=== PATIENT | female | born 1950 | race Caucasian/White ===

== ENCOUNTER 2017-08-26 11:56 | Outpatient (CLI) | payer MEDICARE, BC ==
--- NOTE | 2017-08-26 13:28 | ULT ---
ULTRASOUND GALLBLADDER RIGHT UPPER QUADRANT: HISTORY: Pain. Nausea. Tenderness. COMPARISON: None. FINDINGS: Visualized portion of the pancreas unremarkable. The hepatic echotexture is slightly coarsened. The liver measures 18 cm in length. The main portal vein is patent with antegrade flow. The common bile duct measures 4 mm, normal. Son ographic Oconnor's sign is negative. The right kidney measures 10.5 x 4.4 x 4.6 cm without mass, hydronephrosis, or abnormal calcification s. IMPRESSION: 1. No cholelithiasis or evidence of cholecystitis. 2. Mild increased mild increased hepatic echotexture can be seen with steatosis. POS: [facility]
--- NOTE | 2017-08-26 13:33 | RAD ---
ABDOMEN 2 VIEWS WITH 1 VIEW CHEST XRAY: HISTORY: Abdominal pain, R10.11. COMPARISON: None. FINDINGS: Lungs are clear. No pneumothorax or effusion. Cardiac silhouette and mediastinal contours were with in normal limits. On the upright view, there is no free air in the hemidiaphragms. No dilated air-filled loops of larg e or small bowel. Mild facet degenerative disk disease at L3-4 or L4-5. There appears to be suture material in the left lower quadrant of the abdomen. Moderate vascular neeraj cifications. There are cannulated screws in the left femoral neck. IMPRESSION: No acute intraabdominal or intrathoracic abnormality. POS: [facility]
== END 2017-08-26 11:57 | disposition home or self-care (01) ==
LOC: ULT 11:56
PROVIDERS: ATTEND Internal Medicine Gastroenterology
DX: R10.11 Right upper quadrant pain (principal); R93.2 Abnormal findings on diagnostic imaging of liver and biliary tract
CPT/HCPCS: 36415; 74022; 76705; 80053; 82150; 85025

== ENCOUNTER 2018-02-24 11:18 | Outpatient (CLI) | payer MEDICARE, BC | END 2018-02-24 11:19 | disposition home or self-care (01) | LOC: BICMAMMO 11:18 | PROVIDERS: ATTEND Obstetrics & Gynecology | DX: Z12.31 Encounter for screening mammogram for malignant neoplasm of breast (principal); Z80.3 Family history of malignant neoplasm of breast | CPT/HCPCS: 77063; 77067 ==

== ENCOUNTER 2018-03-16 06:55 | Outpatient (CLI) | payer MEDICARE, BC ==
[2018-03-16] MEDS ORDERED: ISOVUE-370 76%-LOCM 1 ML ONE (13:51)
== END 2018-03-16 06:56 | disposition home or self-care (01) ==
LOC: BICCT 06:55
PROVIDERS: ATTEND Internal Medicine Gastroenterology
DX: D36.15 Benign neoplasm of peripheral nerves and autonomic nervous system of abdomen (principal); R10.32 Left lower quadrant pain; Q43.8 Other specified congenital malformations of intestine; R19.8 Other specified symptoms and signs involving the digestive system and abdomen; R19.4 Change in bowel habit; K55.1 Chronic vascular disorders of intestine; I70.1 Atherosclerosis of renal artery; I70.8 Atherosclerosis of other arteries; Z90.49 Acquired absence of other specified parts of digestive tract
CPT/HCPCS: 74177; 82565

== ENCOUNTER 2019-02-25 09:20 | Outpatient (CLI) | payer MEDICARE ==
--- NOTE | 2019-02-25 10:09 | MMO ---
Bilateral MAMMO Bilat Screen [facility]. CLINICAL HISTORY: Patient is 69 years old and is seen for screening. The patient has no personal history of cancer. The patient has a history of right Lumpectomy in March, - benign. VIEWS: The views performed were: bilateral craniocaudal with tomosynthesis and bilateral mediolateral oblique with tomosynthesis. FILMS COMPARED: The present examination has been compared to prior imaging studies performed at [facility] on 02/28/2015, 02/05/2016, 02/18/2017 and 02/24/2018. MAMMOGRAM FINDINGS: There are scattered fibroglandular densities. There are stable benign appearing calcifications seen in both breasts. There are also vascular calcifications. There are no suspicious masses, suspicious calcifications, or new areas of architectural distortion. IMPRESSION: THERE IS NO MAMMOGRAPHIC EVIDENCE OF MALIGNANCY. A ROUTINE FOLLOW-UP MAMMOGRAM IN 1 YEAR IS RECOMMENDED. THE RESULTS OF THIS EXAM WERE SENT TO THE PATIENT. ACR BI-RADS Category 2 - Benign finding MAMMOGRAPHY NOTE: 1. A negative mammogram report should not delay a biopsy if a dominant of clinically suspicious mass is present. 2. Approximately 10% to 15% of breast cancers are not detected by mammography. 3. Adenosis and dense breasts may obscure an underlying neoplasm. Reported by: MIAN BALL MD Electonically Signed: [id number]
== END 2019-02-25 09:21 | disposition home or self-care (01) ==
LOC: BICMAMMO 09:20
PROVIDERS: ATTEND Obstetrics & Gynecology
DX: Z12.31 Encounter for screening mammogram for malignant neoplasm of breast (principal)
CPT/HCPCS: 77063; 77067

== ENCOUNTER 2019-04-15 11:30 | Outpatient (CLI) | payer MEDICARE, BC ==
[2019-04-15 11:59] LABS: #Basophils 0.1 thou/uL (0.0-0.2); #Eosinphils 0.1 thou/uL (0.0-0.7); #Lymphocytes 1.9 thou/uL (1.20-3.40); #Monocytes 0.7 thou/uL (0.11-0.59); #Neutrophils 5.9 thou/uL (1.40-6.50); %Eosinophils 1.7 % (0.0-10.0); %Lymphocytes 21.3 % (21.0-51.0); %Monocytes 7.7 % (0.0-10.0); %Neutrophils 68.4 % (42.0-75.0); Mean Corpuscular HGB CONC 34.6 g/dL (32.0-36.0); Mean Corpuscular Hemoglobin 32.4 pg (27.0-31.0); Mean Corpuscular Volume 93.6 fL (78.0-98.0); Mean Platelet Volume 8.5 fL (7.4-10.4); Platelet Count 236 thou/uL (130-400); Red Blood Cell (RBC) Count 4.34 mill/uL (4.20-5.40); White Blood Cell (WBC) Count 8.7 thou/uL (4.8-10.8)
[2019-04-15 12:12] LABS: Anion Gap 12 mmol/L (10-20); BUN (Urea Nitrogen) 24 mg/dL (9.8-20.1); Calc. Creatinine Clearance 0 mL/min (70-130); Carbon Dioxide 29 mmol/L (23-31); Cardiac Risk 2.4 (Less than 4.5); Chloride 107 mmol/L (98-107); Estimated GFR-MDRD 68; Glucose 82 mg/dL (80-115); Potassium 4.4 mmol/L (3.5-5.1); Sodium 144 mmol/L (136-145)
--- NOTE | 2019-04-15 16:59 | EKG ---
Test Reason : Blood Pressure : / mmHG Vent. Rate : 056 BPM Atrial Rate : 056 BPM P-R Int : 204 ms QRS Dur : 086 ms QT Int : 486 ms P-R-T Axes : 075 069 235 degrees QTc Int : 468 ms Sinus bradycardia Minimal voltage criteria for LVH, may be normal variant Abnormal ECG When compared with ECG of 04-MAR-2016 11:23, No significant change was found Confirmed by DR. Kenneth CASTRO ([id number]) on 04/15/2019 4:59:07 PM Referred By: GABY Confirmed By:DR. Kenneth CASTRO
== END 2019-04-15 11:31 | disposition home or self-care (01) ==
LOC: LABBT 11:30
PROVIDERS: ATTEND Internal Medicine Cardiovascular Disease
DX: Z01.818 Encounter for other preprocedural examination (principal); R07.9 Chest pain, unspecified
CPT/HCPCS: 80048; 80061; 85025; 93005; 93010

== ENCOUNTER 2019-04-18 06:06 | Day surgery (SDC) | payer MEDICARE, BC ==
[2019-04-15 10:47] VITALS: BMI 32.6
[2019-04-18] MEDS ORDERED: Nitroglycerin 100MG/250ML BOT 250 ML ONE (07:01)
[2019-04-18] MEDS ORDERED: Heparin 10,000 UNITS/1 ML VIAL ONE (07:01)
[2019-04-18] MEDS ORDERED: Lidocaine 1% (PF) 30 ML VIAL ONE (07:01)
[2019-04-18] MEDS ORDERED: Verapamil 5 MG/2 ML VIAL ONE (07:02)
[2019-04-18] MEDS ORDERED: Fentanyl 100 MCG/2 ML VIAL ONE (07:02)
[2019-04-18] MEDS ORDERED: Midazolam HCl 2 mg/2 ml Vial ONE (07:02)
[2019-04-18] MEDS ORDERED: Aspirin Chewable 81 MG TAB ONE ×2 (08:08)
[2019-04-18] MEDS ORDERED: Clopidogrel Bisulfate 300 MG TAB ONE (08:08)
[2019-04-18] MEDS ORDERED: Iopamidol 370 76% 100 ML VIAL ONE (09:43)
[2019-04-18] MEDS ORDERED: Acetaminophen 500 MG TAB ONE (15:31)
[2019-04-18] MEDS ORDERED: Acetaminophen 500 MG TAB PO SCH (16:15)
== END 2019-04-18 17:05 | disposition home or self-care (01) ==
LOC: CCL 06:06
PROVIDERS: ATTEND Internal Medicine Cardiovascular Disease
PROC: 4A023N7 Measurement of Cardiac Sampling and Pressure, Left Heart, Percutaneous Approach (ICD-10-PCS; principal; 2019-04-18)
DX: R07.89 Other chest pain (principal); R00.2 Palpitations; I42.2 Other hypertrophic cardiomyopathy; I10 Essential (primary) hypertension; I25.10 Atherosclerotic heart disease of native coronary artery without angina pectoris; Z79.899 Other long term (current) drug therapy; Z79.82 Long term (current) use of aspirin
CPT/HCPCS: 85347; 92928; 93458; 93798; 99152; 99153; C1725; C1769; C1874; C1887; C9600; J1644; J2001; J2250; J3010; Q9967

== ENCOUNTER 2020-02-27 13:47 | Outpatient (CLI) | payer MEDICARE, BC ==
--- NOTE | 2020-02-27 15:55 | MMO ---
Bilateral MAMMO Bilat Screen [facility]DI[facility]. CLINICAL HISTORY: Patient is 70 years old and is seen for screening. The patient has the following family history of breast cancer: sister, at age 50. The patient has no personal history of cancer. The patient has a history of right Lumpectomy in March, - benign and left Lumpectomy in UNKNOWN - benign. VIEWS: The views performed were: bilateral craniocaudal with tomosynthesis and bilateral mediolateral oblique with tomosynthesis. FILMS COMPARED: The present examination has been compared to prior imaging studies performed at [facility] on 02/05/2016, 02/18/2017, 02/24/2018 and 02/25/2019. This study has been interpreted with the assistance of computer-aided detection. MAMMOGRAM FINDINGS: There are scattered fibroglandular densities. Benign calcifications are noted bilaterally. There are no suspicious masses, suspicious calcifications, or new areas of architectural distortion. IMPRESSION: THERE IS NO MAMMOGRAPHIC EVIDENCE OF MALIGNANCY. A ROUTINE FOLLOW-UP MAMMOGRAM IN 1 YEAR IS RECOMMENDED. THE RESULTS OF THIS EXAM WERE SENT TO THE PATIENT. ACR BI-RADS Category 2 - Benign finding MAMMOGRAPHY NOTE: 1. A negative mammogram report should not delay a biopsy if a dominant of clinically suspicious mass is present. 2. Approximately 10% to 15% of breast cancers are not detected by mammography. 3. Adenosis and dense breasts may obscure an underlying neoplasm. Reported by: JEFRY BUSTILLO MD Electonically Signed: [id number]
== END 2020-02-27 13:48 | disposition home or self-care (01) ==
LOC: BICMAMMO 13:47
PROVIDERS: ATTEND Internal Medicine
DX: Z12.31 Encounter for screening mammogram for malignant neoplasm of breast (principal); Z91.89 Other specified personal risk factors, not elsewhere classified; Z80.3 Family history of malignant neoplasm of breast
CPT/HCPCS: 77063; 77067

== ENCOUNTER 2020-07-02 07:03 | Outpatient (CLI) | payer MEDICARE, BC ==
[2020-07-03 00:33] LABS: SARS-CoV-2 MS2 Positive; SARS-CoV-2 N Gene Negative; SARS-CoV-2 S Gene Negative; SARS-CoV-2 by NAA Not Detected (NotDetected); SARS-CoV-2 orf1ab Negative
== END 2020-07-02 07:04 | disposition home or self-care (01) ==
LOC: LABBT 07:03
PROVIDERS: ATTEND Internal Medicine Gastroenterology
DX: Z01.812 Encounter for preprocedural laboratory examination (principal); D12.6 Benign neoplasm of colon, unspecified; Z20.828 Contact with and (suspected) exposure to other viral communicable diseases
CPT/HCPCS: 87635; U0003

== ENCOUNTER 2020-07-05 11:13 | Day surgery (SDC) | payer MEDICARE, BC ==
[2020-07-04 11:31] VITALS: BMI 31.6
[2020-07-05] MEDS ORDERED: Lidocaine 1% PF 5 ML VIAL ONE (11:40)
[2020-07-05] MEDS ORDERED: PROPOFOL 200 MG/20 ML VIAL ONE (11:40)
--- NOTE | 2020-07-05 19:27 | OP ---
DATE OF PROCEDURE: 07/05/2020 TITLE OF PROCEDURE: Colonoscopy. PREPROCEDURE DIAGNOSIS: History of a schwannoma of the colon, status post left hemicolectomy in June 2017. POSTPROCEDURE DIAGNOSES: 1. Exam to cecum; good bowel preparation. 2. Scar from surgical anastomosis identified at 30 cm from the anal verge, intact and healthy appearing (one suture visible). 3. Small internal hemorrhoids. 4. Hypertrophied anal papilla. 5. No colon polyps or recurrent schwannoma identified. PROCEDURE IN DETAIL: Written informed consent was obtained. Upon completion of the EGD, the patient was repositioned for the colonoscopy. Total intravenous anesthesia was administered by [facility]. A digital rectal exam was performed that was unremarkable. A Pentax video pediatric colonoscope was inserted through the anal canal and advanced under direct visualization to the cecum. Position in the cecum was verified by clear identification of the appendiceal orifice and the ileocecal valve. The quality of the bowel preparation was good. Each colon segment was examined carefully as the colonoscope was slowly withdrawn from the cecum. No polyps or recurrent masses were identified. In the sigmoid colon at 30 cm from the anal verge, a scar from the previous surgical anastomosis was identified and appeared intact and healthy. One small suture was visible. A retroflexed exam in the rectum demonstrated small internal hemorrhoids and hypertrophied anal papilla. The colon was decompressed as the colonoscope was completely removed from the patient. There were no immediate complications. RECOMMENDATIONS: 1. Resume previous diet and medications. 2. Repeat colonoscopy in 3 years. 3. Further recommendations as per my EGD report. Job ID: [id number]
--- NOTE | 2020-07-05 19:39 | OP ---
DATE OF PROCEDURE: 07/05/2020 TITLE OF PROCEDURE: Esophagogastroduodenoscopy with biopsy. PREPROCEDURE DIAGNOSIS: Dysphagia. POSTPROCEDURE DIAGNOSES: 1. Exam to 2nd portion of duodenum. 2. 1 cm sliding hiatal hernia. 3. Grade A distal esophagitis at 40 cm, biopsied. 4. No endoscopic evidence of stricture or esophageal stenosis. 5. Status post 54-[place] Fontaine dilation of the upper 2/3 of the esophagus. 6. Mild patchy erythema of the distal stomach (antrum), biopsied. 7. No gastric or duodenal ulcers. 8. 1.7 cm submucosal mass at the apex of the duodenal bulb, biopsied. 9. Normal-appearing post bulbar duodenum. PROCEDURE IN DETAIL: Written informed consent was obtained. The patient was brought to the endoscopy suite. Total intravenous anesthesia was administered by [facility]. The patient was placed in the left lateral decubitus position. A bite block was inserted into the mouth. A Pentax video diagnostic gastroscope was introduced into the oral cavity and the esophagus was carefully intubated. The gastroscope was advanced under direct visualization to the 2nd portion of the duodenum. Endoscopic findings revealed a small 1 cm sliding hiatal hernia with associated grade A distal esophagitis. Biopsies were obtained for histology. There was no endoscopic evidence of esophageal stricture or stenosis. However, because of the patient's complaints of solid food dysphagia, empiric dilation with a 54-[place]e Fontaine bougie was performed. The endoscope was reintroduced post dilation and revealed no bleeding, tear, or perforation. Examination of the stomach including a retroflexed view of the cardia and fundus revealed mild patchy erythema involving the distal stomach/antrum without obvious ulcers. Biopsies were obtained. In the duodenal bulb, a 1.7 cm submucosal mass was identified at the apex, just before the turn into the 2nd portion of the duodenum. The mass was soft and pliable when probed with the biopsy forceps and the overlying mucosa was intact. However, biopsies were obtained for histology. The post bulbar duodenum appeared normal. The stomach was decompressed as the endoscope was removed from the patient. There were no immediate complications. She was repositioned for the colonoscopy. RECOMMENDATIONS: 1. Await pathology results. 2. Ask the patient to call me in 1 week for pathology results. 3. We will likely require referral to [facility] for endoscopic ultrasound of the duodenum. 4. Initiate omeprazole 40 mg p.o. daily for the next 6 to 8 weeks. 5. Follow up in 6 to 8 weeks in GI Clinic. 6. Further recommendations pending patient's response to therapy and results of the biopsies and EUS. Job ID: [id number]
== END 2020-07-05 15:30 | disposition home or self-care (01) ==
LOC: SDC 11:13
PROVIDERS: ATTEND Internal Medicine Gastroenterology
PROC: 0DJD8ZZ Inspection of Lower Intestinal Tract, Via Natural or Artificial Opening Endoscopic (ICD-10-PCS; principal; 2020-07-05)
PROC: 0DB38ZX Excision of Lower Esophagus, Via Natural or Artificial Opening Endoscopic, Diagnostic (ICD-10-PCS; 2020-07-05)
PROC: 0DB88ZX Excision of Small Intestine, Via Natural or Artificial Opening Endoscopic, Diagnostic (ICD-10-PCS; 2020-07-05)
PROC: 0DB78ZX Excision of Stomach, Pylorus, Via Natural or Artificial Opening Endoscopic, Diagnostic (ICD-10-PCS; 2020-07-05)
DX: R19.4 Change in bowel habit (principal); K64.8 Other hemorrhoids; K62.89 Other specified diseases of anus and rectum; K44.9 Diaphragmatic hernia without obstruction or gangrene; K20.90 Esophagitis, unspecified without bleeding; K31.89 Other diseases of stomach and duodenum; Z79.82 Long term (current) use of aspirin; Z79.899 Other long term (current) drug therapy; Z86.018 Personal history of other benign neoplasm; Z90.49 Acquired absence of other specified parts of digestive tract
CPT/HCPCS: 88305; 88312; 88313; J2704

== ENCOUNTER 2022-02-21 09:36 | Outpatient (CLI) | payer MEDICARE, BC | END 2022-02-21 09:37 | disposition home or self-care (01) | LOC: BICRAD 09:36 | PROVIDERS: ATTEND Physician Assistant | DX: R06.2 Wheezing (principal) | CPT/HCPCS: 71046 ==

== ENCOUNTER 2022-03-03 12:59 | Outpatient (CLI) | payer MEDICARE, BC | END 2022-03-03 13:00 | disposition home or self-care (01) | LOC: BICMAMMO 12:59 | PROVIDERS: ATTEND Internal Medicine | DX: Z12.31 Encounter for screening mammogram for malignant neoplasm of breast (principal); Z80.3 Family history of malignant neoplasm of breast; Z91.89 Other specified personal risk factors, not elsewhere classified | CPT/HCPCS: 77063; 77067 ==

== ENCOUNTER 2023-03-25 10:54 | Outpatient (CLI) | payer MEDICARE, BC | END 2023-03-25 10:55 | disposition home or self-care (01) | LOC: BICMAMMO 10:54 | PROVIDERS: ATTEND Internal Medicine | DX: Z12.31 Encounter for screening mammogram for malignant neoplasm of breast (principal); Z80.3 Family history of malignant neoplasm of breast; Z91.89 Other specified personal risk factors, not elsewhere classified | CPT/HCPCS: 77063; 77067 ==

== ENCOUNTER 2023-12-08 16:30 | Inpatient (IN) | payer MEDICARE, BC ==
[~2023-12-08 16:30] MED LIST: Iopamidol-370 76% 500 ML MDV (1 ML CHARGE) ONE
[2023-12-08 17:27] LABS: #Basophils 0.03 10x3/uL (0.0-0.2); %Basophils 0.3 % (0.0-1.0); %Eosinophils 1.4 % (0.0-10.0); %Lymphocytes 20.7 % (21.0-51.0); %Monocytes 6.4 % (0.0-10.0); %Neutrophils 70.9 % (42.0-75.0); Hematocrit 40.8 % (36.0-47.0); Hemoglobin 13.8 g/dL (12.0-16.0); Mean Corpuscular HGB CONC 33.8 g/dL (32.0-36.0); Mean Corpuscular Hemoglobin 30.9 pg (27.0-31.0); Mean Corpuscular Volume 91.5 fL (78.0-98.0); Mean Platelet Volume 11.3 fL (7.4-10.4); Platelet Count 258 10x3/uL (130-400); RBC Distribution Width 13.7 % (11.5-14.5); Red Blood Cell (RBC) Count 4.46 mill/uL (4.20-5.40)
[2023-12-08] MEDS ORDERED: Aspirin Chewable 81 MG TAB ONE (17:39)
[2023-12-08] MEDS ORDERED: Magnesium 2 GM/50 ML BAG (IN WATER) ONE (17:40)
[2023-12-08 17:41] LABS: INR-International Normal Ratio 0.9; Prothrombin Time 12.2 sec (12.0-14.7)
[2023-12-08 18:11] LABS: Troponin I 0.024 ng/mL (< 0.028)
[2023-12-08 18:16] LABS: Globulin 3.2 g/dL (2.4-3.5)
[2023-12-08 18:21] LABS: ALT (SGPT) 25 U/L (8-55); AST (SGOT) 24 U/L (5-34); Albumin 3.7 g/dL (3.4-4.8); Alkaline Phosphatase 86 U/L (40-110); Anion Gap 16 mmol/L (10-20); BUN (Urea Nitrogen) 19 mg/dL (9.8-20.1); Bilirubin, Total 0.7 mg/dL (0.2-1.2); Calc. Creatinine Clearance 0 mL/min (70-130); Calcium 9.4 mg/dL (7.8-10.44); Carbon Dioxide 27 mmol/L (23-31); Chloride 103 mmol/L (98-107); Estimated GFR 61; Glucose 139 mg/dL (83-110); Lipase 53 U/L (8-78); Potassium 3.5 mmol/L (3.5-5.1); Protein, Total 6.9 g/dL (5.8-8.1); Sodium 142 mmol/L (136-145)
[2023-12-08] MEDS ORDERED: Ondansetron PF 4 MG/2 ML Vial IVP PRN (21:41)
[2023-12-08] MEDS ORDERED: Ondansetron ODT 4 MG TAB PO PRN (21:41)
[2023-12-08 23:11] LABS: Troponin I 0.024 ng/mL (< 0.028)
[2023-12-08] MEDS ORDERED: Potassium Chloride 20 MEQ TAB ONE (23:14)
[2023-12-08] MEDS: Nitroglycerin 2% Ointment 1 INCH/1 GM Packet TOP SCH (23:15)
[2023-12-08] MEDS: Potassium Chloride 20 MEQ TAB PO SCH (23:16)
[2023-12-09] MEDS ORDERED: Acetaminophen 325 MG TAB ONE ×2 (05:13→09:45)
[2023-12-09] MEDS: Acetaminophen 325 MG TAB PO PRN (05:15)
[2023-12-09 05:20] LABS: #Basophils 0.04 10x3/uL (0.0-0.2); %Basophils 0.6 % (0.0-1.0); %Eosinophils 1.7 % (0.0-10.0); %Lymphocytes 27.4 % (21.0-51.0); %Monocytes 7.6 % (0.0-10.0); %Neutrophils 62.6 % (42.0-75.0); Hematocrit 39.6 % (36.0-47.0); Hemoglobin 12.9 g/dL (12.0-16.0); Mean Corpuscular HGB CONC 32.6 g/dL (32.0-36.0); Mean Corpuscular Hemoglobin 30.1 pg (27.0-31.0); Mean Corpuscular Volume 92.5 fL (78.0-98.0); Platelet Count 215 10x3/uL (130-400); RBC Distribution Width 13.8 % (11.5-14.5); Red Blood Cell (RBC) Count 4.28 mill/uL (4.20-5.40)
[2023-12-09 05:26] LABS: Anion Gap 17 mmol/L (10-20); BUN (Urea Nitrogen) 14 mg/dL (9.8-20.1); Calc. Creatinine Clearance 0 mL/min (70-130); Carbon Dioxide 24 mmol/L (23-31); Cardiac Risk 2.6 (Less than 4.5); Chloride 105 mmol/L (98-107); Cholesterol 164 mg/dl (< 200 Desired); Estimated GFR 80; Glucose 107 mg/dL (83-110); HDL Cholesterol 63 mg/dL (>60 Neg Risk); LDL Cholesterol, Calculated 82 mg/dL; Potassium 3.8 mmol/L (3.5-5.1); Sodium 142 mmol/L (136-145); Triglycerides 93 mg/dL (Less than 150)
[2023-12-09 05:29] LABS: Troponin I 0.024 ng/mL (< 0.028)
[2023-12-09] MEDS ORDERED: Rosuvastatin 20 MG TAB PO SCH (09:00)
[2023-12-09] MEDS ORDERED: Aspirin Chewable 81 MG TAB PO SCH (09:00)
[2023-12-09 11:13] VITALS: BMI 36.5
[2023-12-09] MEDS ORDERED: Lisinopril 10 MG TAB ONE (12:13)
[2023-12-09] MEDS ORDERED: Aspirin 325 MG TAB ONE (12:13)
[2023-12-09] MEDS ORDERED: Enoxaparin 40 MG (0.4 mL) SYRINGE ONE (12:14)
[2023-12-09] MEDS: Aspirin 325 MG TAB PO SCH (12:16)
[2023-12-09] MEDS: Lisinopril 10 MG TAB PO SCH (12:17)
[2023-12-09] MEDS: Enoxaparin 40 MG (0.4 mL) SYRINGE SC SCH (12:18)
[2023-12-09] MEDS: Rosuvastatin 10 MG TAB PO SCH (12:19)
[2023-12-09] MEDS: Cholecalciferol 1,000 UNITS (25 MCG) TAB PO SCH (14:51)
[2023-12-09] MEDS: Amlodipine 5 MG TAB PO SCH (14:51)
[2023-12-09] MEDS: Multivitamin W/ Minerals 1 TAB PO SCH (14:52)
[2023-12-09] MEDS: Sertraline 100 MG TAB PO SCH (14:52)
[2023-12-09] MEDS ORDERED: Magnesium Sulfate 3 GM in Sodium Chloride 0.9% 100 ML IVPB SCH (18:15)
[2023-12-09] MEDS: Gabapentin 300 MG CAP PO SCH (20:40)
[2023-12-09] MEDS: Nitrofurantoin Monohyd/M-Cryst 100 MG CAP PO SCH (20:41)
[2023-12-10 04:08] LABS: #Basophils 0.03 10x3/uL (0.0-0.2); %Basophils 0.5 % (0.0-1.0); %Eosinophils 1.4 % (0.0-10.0); %Lymphocytes 27.6 % (21.0-51.0); %Monocytes 7.5 % (0.0-10.0); %Neutrophils 62.8 % (42.0-75.0); Hematocrit 38.6 % (36.0-47.0); Hemoglobin 12.6 g/dL (12.0-16.0); Mean Corpuscular HGB CONC 32.6 g/dL (32.0-36.0); Mean Corpuscular Hemoglobin 29.6 pg (27.0-31.0); Mean Corpuscular Volume 90.6 fL (78.0-98.0); Mean Platelet Volume 11.1 fL (7.4-10.4); Platelet Count 218 10x3/uL (130-400); RBC Distribution Width 13.9 % (11.5-14.5); Red Blood Cell (RBC) Count 4.26 mill/uL (4.20-5.40)
[2023-12-10 04:21] LABS: Anion Gap 15 mmol/L (10-20); BUN (Urea Nitrogen) 16 mg/dL (9.8-20.1); Calc. Creatinine Clearance 120 mL/min (70-130); Calcium 9.2 mg/dL (7.8-10.44); Carbon Dioxide 25 mmol/L (23-31); Chloride 110 mmol/L (98-107); Estimated GFR 86; Glucose 111 mg/dL (83-110); Potassium 4.4 mmol/L (3.5-5.1); Sodium 146 mmol/L (136-145)
[2023-12-10] MEDS ORDERED: Communication Order-Pharmacy FS SCH (08:30)
[2023-12-10] MEDS: Pantoprazole DR 40 MG TAB PO SCH (09:09)
[2023-12-10] MEDS ORDERED: Verapamil 5 MG/2 ML VIAL ONE (11:52)
[2023-12-10] MEDS ORDERED: Heparin 10,000 UNITS/ 10 ML VIAL ONE (11:52)
[2023-12-10] MEDS ORDERED: Nitroglycerin 50 MG/250 ML BOT 250 ML ONE (11:52)
[2023-12-10] MEDS ORDERED: fentaNYL 50 mcg/mL 1 mL Vial ONE (12:22)
[2023-12-10] MEDS ORDERED: Midazolam HCl 2 mg/2 ml Vial ONE (12:22)
[2023-12-10] MEDS ORDERED: Nitroglycerin 0.4 MG TAB (25 Tab Bottle) SL PRN (12:52)
[2023-12-10] MEDS ORDERED: Sodium Chloride 0.9% 200 ML IV PRN (12:52)
[2023-12-10] MEDS ORDERED: Acetaminophen/Codeine 30-300mg Tablet PO PRN ×2 (12:52)
[2023-12-10 16:31] VITALS: TEMP 97.6
[2023-12-10] MEDS: Sodium Chloride 0.9% 1,000 ML IV SCH (17:51)
[2023-12-10 20:54] VITALS: BP 168/74
== END 2023-12-10 21:18 | disposition home or self-care (01) | DRG 287 ==
LOC: ERS 16:30 → ERHOLD 21:24 → 2SW 21:29 → OBSVTOIN 12-09 14:37
PROVIDERS: ADMIT Internal Medicine; ATTEND Internal Medicine
PROC: B2111ZZ Fluoroscopy of Multiple Coronary Arteries using Low Osmolar Contrast (ICD-10-PCS; principal; 2023-12-10)
PROC: 4A023N7 Measurement of Cardiac Sampling and Pressure, Left Heart, Percutaneous Approach (ICD-10-PCS; 2023-12-10)
PROC: B2151ZZ Fluoroscopy of Left Heart using Low Osmolar Contrast (ICD-10-PCS; 2023-12-10)
DX: R07.89 Other chest pain (principal); I50.22 Chronic systolic (congestive) heart failure; I25.10 Atherosclerotic heart disease of native coronary artery without angina pectoris; I11.0 Hypertensive heart disease with heart failure; E87.6 Hypokalemia; E78.5 Hyperlipidemia, unspecified; Z79.899 Other long term (current) drug therapy; Z79.82 Long term (current) use of aspirin; Z98.49 Cataract extraction status, unspecified eye; Z98.890 Other specified postprocedural states
CPT/HCPCS: 36415; 71045; 71275; 80048; 80053; 80061; 83690; 83735; 83880; 84443; 84484; 85025; 85610; 85730; 93005; 93306; 93458; 96365; 99152; C1769; C1894; J1644; J1650; J2250; J3010; J3475; Q9967